=== PATIENT | female | born 1965 | race Caucasian/White ===

== ENCOUNTER 2017-02-23 09:31 | Emergency (ER) | payer OTHER ==
[~2017-02-23] VITALS: Ht 157.5 cm; Wt 62.6 kg
[2017-02-23 09:38] VITALS: BP 147/86
[2017-02-23] MEDS ORDERED: SIMVASTATIN20 M2 PO (09:49)
--- NOTE | 2017-02-23 10:02 | ED HAND/WRIST INJURY COMPLAINT ---
History of Present Illness General Chief Complaint: Laceration Procedure Stated Complaint: LAC TO FINGER (TIP REMOVED) Source: patient Exam Limitations: no limitations Vital Signs & Intake/Output Vital Signs & Intake/Output Vital Signs Date Time Temp Pulse Resp B/P B/P Pulse O2 O2 Flow FiO2 Mean Ox Delivery Rate 02/23 0938 97.4 97 20 147/86 97 Room Air Allergies Coded Allergies: crab (Severe, ANAPHYLAXIS 02/23/17) shrimp (Severe, THROAT CLOSURE 02/23/17) Penicillins (RASH 02/23/17) Uncoded Allergies: LOBSTER (THROAT CLOSURE 09/11/13) Reconcile Medications Oxycodone HCl/Acetaminophen (Percocet 5-325 MG Tablet) 5 MG-325 MG TABLET 1-2 TAB PO Q6P PRN pain Oxycodone HCl/Acetaminophen (Percocet 5-325 MG Tablet) 5 MG-325 MG TABLET 1-2 TAB PO Q6P PRN pain Simvastatin (Simvastatin*) 20 MG TABLET 1 TAB PO QPM CHOLESTEROL (Reported) Triage Note: PT TO ED C/O RIGHT MIDDLE FINGER PAIN/LAC. STATES SHE CRUSHED IT BETWEEN A METAL RACK AND A WEIGHT AT THE GYM. STATES THE SKIN ON THE TIP OF THE FINGER IS OFF. "I SAVED IT, I'M HOPING IT CAN BE GRAFTED BACK ON". UNSURE OF LAST TETANUS SHOT. FINGER WRAPPED WIG MAKER, NOT SEEN IN TRIAGE. Triage Nurses Notes Reviewed? yes Occurred: just prior to arrival Duration: minute(s):, constant, continues in ED Timing: recent history Severity: severe Pain/Injury Location: Right: 3rd finger. Method of Injury: crush No Modifying Factors: none HPI: 52-year-old female comes into emergency room for further evaluation of right third finger pain. Patient reports that weight was dropped on her finger in a large chunk of skin was removed and she was having associated pain and bleeding. Patient brought the chunk of skin with her. Denies any other associated symptoms or trauma. Patient in a moderate amount of distress with pain. (JULIANO BRANHAM) Past History Travel History Traveled to [place] past 21 day No Medical History Any Pertinent Medical History? see below for history Psychiatric: anxiety Surgical History Surgical History: non-contributory Psychosocial History What is your primary language Indonesian Tobacco Use: Never used ETOH Use: denies use Illicit Drug Use: denies illicit drug use Family History Hx Contributory? No (JULIANO BRANHAM) Review of Systems Review of Systems Constitutional: Reports: no symptoms. EENTM: Reports: no symptoms. Respiratory: Reports: no symptoms. Cardiovascular: Reports: no symptoms. GI: Reports: no symptoms. Genitourinary: Reports: no symptoms. Musculoskeletal: Reports: see HPI. Skin: Reports: see HPI. Neurological/Psychological: Reports: no symptoms. Hematologic/Endocrine: Reports: no symptoms. Immunologic/Allergic: Reports: no symptoms. All Other Systems: Reviewed and Negative (JULIANO BRANHAM) Physical Exam Physical Exam General Appearance: well developed/nourished, mild distress Head: atraumatic Eyes: Bilateral: normal appearance. Ears, Nose, Throat: normal ENT inspection, hearing grossly normal Neck: normal inspection Cardiovascular/Respiratory: no respiratory distress Back: normal inspection Hand Left: normal inspection Hand Right: 3rd finger, deformity, large chunk of skin missing at distal phalanx in the finger pad Neurologic/Tendon: normal sensation, normal motor functions, responds to pain, no evidence tendon injury, no pulse deficit Skin: intact, normal color, warm/dry Lymphatic: no anterior cervical sweetie (JULIANO BRANHAM) Progress Differential Diagnosis: contusion, compartment syndrome, dislocation, felon, fracture, gout, paronychia, septic arthritis, tenosynovitis Plan of Care: Orders Procedure Date/time Status XRY-FINGERS, RIGHT 02/24 952 Active Diagnostic Imaging: Viewed by Me: Radiology Read. Discussed w/RAD: Radiology Read. Comments: SERVICE DATE: 02/23/17 EXAM TYPE: RAD - XRY-FINGERS, RIGHT EXAMINATION: XR FINGER, RIGHT CLINICAL INFORMATION: Pain; question fracture. COMPARISON: None. TECHNIQUE: Three views of the right third (middle) finger were submitted.. FINDINGS: Bony alignment and mineralization are normal. No fracture dislocation or unusual degenerative change is seen. A soft tissue laceration is seen of the distal pad of the right third finger, without foreign body. IMPRESSION: No fracture, dislocation or foreign body is seen. (JULIANO BRANHAM) Departure Departure Disposition: HOME OR SELF CARE Condition: Stable Clinical Impression Primary Impression: Skin avulsion Referrals: HORTENCIA COTTON,ADELINA Maria (PCP/Family) Additional Instructions: Take Percocet as needed for pain. Keep dressing in place for 2 days. Follow-up with primary care doctor for wound check in 3-5 days. Return if any other concerns. Please go over all results of today's visit with your primary care doctor. Contact your primary care doctor to let them know you were here in the emergency room. There may be nonspecific findings which may not be related to your visit today here in the emergency room but may require further evaluation and chronic monitoring by your primary care doctor. If you had a laceration today the chance of foreign body always remains. You should follow-up with your primary care doctor for recheck in 3-5 days for a wound check. If you had an x-ray done there is a chance that a fracture could have been missed on initial read and you should follow-up with your primary care doctor for repeat x-rays if symptoms persist. If your blood pressure was elevated here in the emergency room please have rechecked by her primary care doctor within the next 48 hours by your primary care doctor. If you were prescribed a narcotic here in the emergency room or any type of controlled substances you're not allowed to drive while taking this medication or operate any type of heavy machinery. Narcotics can make you feel lightheaded dizziness nausea and can cause constipation. You may need to poultry picker a stool softener. Thank you for choosing [facility] emergency room. Please return to the emergency room immediately if you have any other concerns worsening of symptoms. Departure Forms: Customer Survey General Discharge Information Prescriptions: Current Visit Scripts Oxycodone HCl/Acetaminophen (Percocet 5-325 MG Tablet) 1-2 TAB PO Q6P PRN pain #15 TAB Oxycodone HCl/Acetaminophen (Percocet 5-325 MG Tablet) 1-2 TAB PO Q6P PRN pain #15 TAB Comments 02/23/2017 10:55:41 AM There is nothing to suture on exam. Small piece of skin that the patient has not filed well to reattach. No nail trauma. No evidence of fracture. Bleeding is controlled. (JULIANO BRANHAM) PA/VAUDEVILLE ACTOR Co-Sign Statement Statement: ED Attending supervision documentation- [] I saw and evaluated the patient. I have also reviewed all the pertinent lab results and diagnostic results. I agree with the findings and the plan of care as documented in the PA's/VAUDEVILLE ACTOR's documentation. [X] I have reviewed the ED Record and agree with the PA's/VAUDEVILLE ACTOR's documentation. [] Additions or exceptions (if any) to the PAs/VAUDEVILLE ACTOR's note and plan are summarized below: [] (MEMO COTTON,RAMOS Kaufman) Procedures Additional Procedures Progress: Digital block Betadine prep right third finger, 1% lidocaine injected, 4 mL injected, (NATY MIDDLETON,JULIANO)
[2017-02-23] MEDS ORDERED: PERCOCET 5-3251 EACH PO ×2 (10:27→10:47)
--- NOTE | 2017-02-23 10:27 | RADIOLOGY REPORT ---
EXAMINATION: XR FINGER, RIGHT CLINICAL INFORMATION: Pain; question fracture. COMPARISON: None. TECHNIQUE: Three views of the right third (middle) finger were submitted.. FINDINGS: Bony alignment and mineralization are normal. No fracture dislocation or unusual degenerative change is seen. A soft tissue laceration is seen of the distal pad of the right third finger, without foreign body. IMPRESSION: No fracture, dislocation or foreign body is seen.
== END 2017-02-23 10:49 ==
LOC: ERH 09:31
DX: S61.212A Laceration without foreign body of right middle finger without damage to nail, initial encounter (principal); W23.0XXA Caught, crushed, jammed, or pinched between moving objects, initial encounter; Y93.B3 Activity, free weights; Y92.9 Unspecified place or not applicable
CPT/HCPCS: 73140-RT; 90471

== ENCOUNTER 2018-07-25 18:09 | Emergency (ER) | payer OTHER ==
[~2018-07-25] VITALS: Ht 157.5 cm; Wt 63.5 kg
[~2018-07-25 18:09] MED LIST: PERCOCET 5-3251 EACH PO; SIMVASTATIN20 M2 PO
[2018-07-25 18:12] VITALS: BP 124/81
--- NOTE | 2018-07-25 19:56 | RADIOLOGY REPORT ---
EXAMINATION: XR ANKLE, RIGHT CLINICAL INFORMATION: Fall. Evaluate for fracture. COMPARISON: Right ankle radiographs 09/11/2013. TECHNIQUE: AP, lateral, and mortise views of the right ankle. FINDINGS: There is a small well corticated bone fragment at the tip of the medial malleolus that most likely represents chronic changes related to an old injury. There is no evidence of acute fracture. No dislocation. No incongruity is visualized on the ankle mortise view. Soft tissues are unremarkable. Joint spaces are maintained. No joint effusion. IMPRESSION: No evidence of acute fracture and no dislocation.
--- NOTE | 2018-07-25 20:22 | ED GENERAL ADULT ---
History of Present Illness General Chief Complaint: Foot or Ankle Injury Stated Complaint: R ANKLE INJURY TWISTED WHILE HIKING, NOW FEVER Source: patient Exam Limitations: no limitations Vital Signs & Intake/Output Vital Signs & Intake/Output Vital Signs Date Time Temp Pulse Resp B/P B/P Pulse O2 O2 Flow FiO2 Mean Ox Delivery Rate 07/25 1812 98.4 100 18 124/81 98 Room Air ED Intake and Output 07/26 0000 07/25 1200 Intake Total Output Total Balance Patient 140 lb Weight Allergies Coded Allergies: crab (Severe, ANAPHYLAXIS 02/23/17) shrimp (Severe, THROAT CLOSURE 02/23/17) Penicillins (RASH 02/23/17) Uncoded Allergies: LOBSTER (THROAT CLOSURE 09/11/13) Reconcile Medications Oxycodone HCl/Acetaminophen (Percocet 5-325 MG Tablet) 5 MG-325 MG TABLET 1-2 TAB PO Q6P PRN pain Oxycodone HCl/Acetaminophen (Percocet 5-325 MG Tablet) 5 MG-325 MG TABLET 1-2 TAB PO Q6P PRN pain Simvastatin (Simvastatin*) 20 MG TABLET 1 TAB PO QPM CHOLESTEROL (Reported) Triage Note: PT AMBULATORY TO TRIAGE WITH CRUTCHES, STATES THAT SHE WAS WALKING AND SHE TWISTED HER R ANKLE. WENT HOME ELEVATED IT AND THEN SHE STATES THAT SHE GOT CHILLS HAD SLIGHT FEVER , TOOK ALEVE FOR PAIN AND FEVER, STATES THAT SHE WAS CONCERNED DUE TO FEVER Triage Nurses Notes Reviewed? yes Onset: Abrupt Duration: hour(s): Timing: single episode today HPI: 53-year-old female with a history of anxiety presenting with right ankle pain over the past several hours. Patient reports that she went on a 14 mile hike today. She had tripped over an uneven part of the ground and inverted her ankle. Has had difficulty bearing weight since. She presents to the emergency department using crutches that she had at home for ambulation. Denies numbness or paresthesias. She states that just shortly prior to arrival she felt like she had chills and checked her temperature at home. She had an elevated temperature to 100.0. Reports that she had URI symptoms yesterday with nasal congestion and right area that have since self resolved. Denies cough, sputum, chest pain, shortness of breath, nausea, vomiting, diarrhea, abdominal pain, dysuria. (Everardo Elin MIDDLETON) Past History Travel History Traveled to [place] past 21 day No Medical History Any Pertinent Medical History? see below for history Neurological: NONE EENT: NONE Cardiovascular: NONE Respiratory: NONE Gastrointestinal: NONE Hepatic: NONE Renal: NONE Musculoskeletal: NONE Psychiatric: anxiety Cancer(s): NONE EXPERIMENTAL PSYCHOLOGIST/Reproductive: NONE Tetanus Vaccine: 02/23/17 Surgical History Surgical History: non-contributory Psychosocial History What is your primary language Angolan Tobacco Use: Never used ETOH Use: denies use Illicit Drug Use: denies illicit drug use Family History Hx Contributory? No (Elin Veras) Review of Systems Review of Systems Constitutional: Reports: no symptoms. EENTM: Reports: no symptoms. Respiratory: Reports: no symptoms. Cardiovascular: Reports: no symptoms. GI: Reports: no symptoms. Genitourinary: Reports: no symptoms. Musculoskeletal: Reports: see HPI. Skin: Reports: no symptoms. Neurological/Psychological: Reports: no symptoms. Hematologic/Endocrine: Reports: no symptoms. Immunologic/Allergic: Reports: no symptoms. All Other Systems: Reviewed and Negative (Elin Veras) Physical Exam Physical Exam General Appearance: well developed/nourished, no apparent distress, alert, awake Comments: Gen.: Well-nourished, well-developed, no acute distress. Head: Normocephalic, atraumatic. Eyes: Normal inspection bilaterally Ears: Normal inspection bilaterally Nose: Normal inspection Neck: Normal inspection Lungs: clear to auscultation bilaterally, normnal breath sounds Heart: regular rate and rhythm Abdomen: soft and non-tender EXTREMITIES: right ankle Inspection: Normal inspection, no edema or deformity Palpation: Tender to palpation over the lateral ankle ROM: Mild decrease in range of motion at the ankle joint Sensation: intact Motor strength: Mild decrease in motor strength Pulse: 2+ dorsalis pedis and posterior tibialis pulses Difficulty with bearing weight and ambulating Neurologic: alert and oriented x3 Skin: warm and dry Psychiatric: Normal mood and affect, no apparent delusions or hallucinations, behavior appropriate Core Measures ACS in differential dx? No CVA/TIA Diagnosis: No Sepsis Present: No Sepsis Focused Exam Completed? No (Elin Veras) Progress Differential Diagnoses I considered the following diagnoses in my evaluation of the patient: [Ankle sprain versus fracture versus dislocation] Plan of Care: Orders Procedure Date/time Status Durable Medical Equipment 07/25 2019 Active Ankle x-ray unremarkable. Likely with ankle sprain. Placed in [employer] and instructed to continue using crutches for ambulation with weightbearing as tolerable. She will use NSAIDs and ice for pain. Counseled on supportive care and strict return precautions. Initial ED EKG: none (Elin Veras) Departure Departure Disposition: HOME OR SELF CARE Condition: Stable Clinical Impression Primary Impression: Right ankle sprain Referrals: Fidelina COTTON,Larry Maria (PCP/Family) Additional Instructions: Use ibuprofen and ice as needed for pain. Arches for ambulation with weightbearing as tolerable. Follow-up with your primary care provider for reevaluation. Return to the emergency department for any new or worsening symptoms. Departure Forms: Customer Survey General Discharge Information (Elin Veras) PA/DEVELOPMENTAL ELECTRONICS ASSEMBLER Co-Sign Statement Statement: ED Attending supervision documentation- [] I saw and evaluated the patient. I have also reviewed all the pertinent lab results and diagnostic results. I agree with the findings and the plan of care as documented in the PA's/DEVELOPMENTAL ELECTRONICS ASSEMBLER's documentation. [x] I have reviewed the ED Record and agree with the PA's/DEVELOPMENTAL ELECTRONICS ASSEMBLER's documentation. [] Additions or exceptions (if any) to the PAs/DEVELOPMENTAL ELECTRONICS ASSEMBLER's note and plan are summarized below: [] (William COTTON,Lora) Critical Care Note Critical Care Note Critical Care Time: non-applicable (Elin Veras)
== END 2018-07-25 20:25 ==
LOC: ERH 18:09
DX: S93.401A Sprain of unspecified ligament of right ankle, initial encounter (principal); W18.09XA Striking against other object with subsequent fall, initial encounter; Y93.01 Activity, walking, marching and hiking; Y92.9 Unspecified place or not applicable; F41.9 Anxiety disorder, unspecified
CPT/HCPCS: 73610-RT